=== PATIENT | male | born 1990 | race Caucasian/White ===

== ENCOUNTER 2019-07-23 19:24 | Emergency (ER) | payer MEDICAID ==
[~2019-07-23] VITALS: Ht 180.3 cm; Wt 108.9 kg
[2019-07-23 19:31] VITALS: Ht 180.3 cm; Wt 108.9 kg
[2019-07-23 21:08] LABS: BASOPHIL % 0.4 % (0-2); PLATELET COUNT 260 x10^3mcL (130-400); RED CELL DISTRIBUTION WIDTH 13.3 % (11.5-14.5)
[2019-07-23 21:29] LABS: CALCIUM 8.8 mg/dL (8.5-10.1); CARBON DIOXIDE 27.1 mmol/L (21-32); CHLORIDE SERUM 102 mmol/L (98-107); CREATININE SERUM 0.7 mg/dL (0.7-1.3); GFR1 > 60 mL/min; GLUCOSE SERUM 114 mg/dL (74-106); POTASSIUM SERUM 3.3 mmol/L (3.5-5.1); SODIUM SERUM 136 mmol/L (136-145)
[2019-07-23 21:33] LABS: ALBUMIN 3.9 g/dL (3.4-5.0); ALKALINE PHOSPHATASE 65 U/L (46-116); ALT/SGPT 114 U/L (16-63); AST/SGOT 48 U/L (15-37); TOTAL PROTEIN, SERUM 7.6 g/dL (6.4-8.2)
[2019-07-23 22:02] LABS: AMPHETAMINE QUAL UR NONE DETECTED (See below)
[2019-07-24 00:22] VITALS: BP 146/103
== END 2019-07-24 00:22 | disposition home or self-care (01) ==
LOC: ED 19:24
PROVIDERS: Emergency Medicine
DX: G40.909 Epilepsy, unspecified, not intractable, without status epilepticus (principal)
CPT/HCPCS: G0480; J1953; J2060; J7030

== ENCOUNTER 2019-07-25 05:17 | Emergency (ER) | payer SELFPAY ==
[~2019-07-25] VITALS: Ht 180.3 cm; Wt 125.2 kg
[2019-07-25 05:21] VITALS: Ht 180.3 cm; Wt 125.2 kg
[2019-07-25 06:57] LABS: CALCIUM 9.2 mg/dL (8.5-10.1); CARBON DIOXIDE 26.6 mmol/L (21-32); CHLORIDE SERUM 103 mmol/L (98-107); CREATININE SERUM 0.7 mg/dL (0.7-1.3); GFR1 > 60 mL/min; GLUCOSE SERUM 108 mg/dL (74-106); POTASSIUM SERUM 3.9 mmol/L (3.5-5.1); SODIUM SERUM 139 mmol/L (136-145)
[2019-07-25 07:15] VITALS: BP 150/94
== END 2019-07-25 07:15 | disposition home or self-care (01) ==
LOC: ED 05:17
PROVIDERS: Emergency Medicine
DX: F41.9 Anxiety disorder, unspecified (principal); F11.23 Opioid dependence with withdrawal; Z87.442 Personal history of urinary calculi

== ENCOUNTER 2020-02-14 21:08 | Emergency (ER) | payer OTHER ==
[~2020-02-14] VITALS: Ht 180.3 cm; Wt 122.5 kg
[2020-02-14 21:15] VITALS: Ht 180.3 cm; Wt 122.5 kg
[2020-02-14 21:28] LABS: BASOPHIL % 0.6 % (0-2); PLATELET COUNT 288 x10^3mcL (130-400); RED CELL DISTRIBUTION WIDTH 13.5 % (11.5-14.5)
[2020-02-14 22:00] LABS: CALCIUM 8.7 mg/dL (8.5-10.1); CARBON DIOXIDE 27.3 mmol/L (21-32); CHLORIDE SERUM 102 mmol/L (98-107); CREATININE SERUM 0.9 mg/dL (0.7-1.3); GFR1 > 60 mL/min; GLUCOSE SERUM 115 mg/dL (74-106); POTASSIUM SERUM 3.3 mmol/L (3.5-5.1); SODIUM SERUM 141 mmol/L (136-145)
[2020-02-14 22:10] LABS: ALBUMIN 3.9 g/dL (3.4-5.0); ALKALINE PHOSPHATASE 91 U/L (46-116); ALT/SGPT 149 U/L (16-63); AST/SGOT 46 U/L (15-37); BILIRUBIN TOTAL 0.27 mg/dL (0.20-1.00); TOTAL PROTEIN, SERUM 7.4 g/dL (6.4-8.2)
[2020-02-15 01:31] VITALS: BP 146/103
== END 2020-02-15 01:31 | disposition home or self-care (01) ==
LOC: ED 21:08
PROVIDERS: Emergency Medicine
DX: G40.909 Epilepsy, unspecified, not intractable, without status epilepticus (principal); Z87.442 Personal history of urinary calculi
CPT/HCPCS: J1953; J7030; Q0092

== ENCOUNTER 2020-05-27 11:30 | Emergency (ER) | payer OTHER ==
[~2020-05-27] VITALS: Ht 180.3 cm; Wt 127.0 kg
[2020-05-27 11:36] VITALS: Ht 180.3 cm; Wt 127.0 kg
[2020-05-27 14:03] VITALS: BP 139/89
== END 2020-05-27 14:03 | disposition home or self-care (01) ==
LOC: ED 11:30
DX: R56.9 Unspecified convulsions (principal); R41.0 Disorientation, unspecified; I10 Essential (primary) hypertension; Z87.442 Personal history of urinary calculi
CPT/HCPCS: 82962; J2060